=== PATIENT | male | born 1945 | race Caucasian/White ===

== ENCOUNTER → 2017-11-02 08:30 | Outpatient (CLI) | payer MEDICARE, BC, SELFPAY | PROVIDERS: PCP Family Medicine; Visit Provider Urology | DX: C61 Malignant neoplasm of prostate (principal) | CPT/HCPCS: 96402; 99213; J9217 ==

== ENCOUNTER 2017-11-23 08:07 | Outpatient (CLI) | payer MEDICARE, BC, SELFPAY ==
[2017-11-23 09:26] LABS: ALT 21 U/L (12-78); AST 13 U/L (15-37); Albumin 3.5 g/dL (3.4-5.0); Alkaline Phosphatase 75 U/L (46-116); Anion Gap 7.3 mmol/L (3-11); BUN 14 mg/dL (7-18); Bilirubin, Total 0.5 mg/dL (0.2-1.0); CO2 29.7 mmol/L (21.0-32.0); CREATININE 0.81 mg/dL (0.70-1.30); Calcium 9.1 mg/dL (8.5-10.1); Chloride 107 mmol/L (98-107); Cholesterol 140 mg/dL (50-200); Glucose 102 mg/dL (70-100); HDL Cholesterol 44 mg/dL (40-60); LDL CHOLESTEROL 79 mg/dL (<100); Sodium 144 mmol/L (136-145); Total Protein 6.5 g/dL (6.4-8.2); Triglyceride 131 mg/dL (30-150)
[2017-11-24 10:47] LABS: PSA, Diagnostic <0.1 ng/ml (0-6.5)
== END 2017-11-23 08:27 ==
PROVIDERS: PCP Family Medicine; Referring Provider Family Medicine; Visit Provider Urology
DX: E55.9 Vitamin D deficiency, unspecified (principal); E78.2 Mixed hyperlipidemia; R53.83 Other fatigue; R73.9 Hyperglycemia, unspecified; Z85.46 Personal history of malignant neoplasm of prostate; C61 Malignant neoplasm of prostate
CPT/HCPCS: 80053; 80061; 83721; 84153

== ENCOUNTER → 2018-09-14 09:02 | Outpatient (BNVA) | payer MEDICARE, BC, SELFPAY | PROVIDERS: PCP Family Medicine; Visit Provider Urology | DX: R69 Illness, unspecified (principal) ==

== ENCOUNTER 2018-09-14 09:37 | Outpatient (CLI) | payer MEDICARE, BC, SELFPAY ==
[2018-09-15 08:57] LABS: PSA, Diagnostic <0.1 ng/ml (0-6.5)
== END 2018-09-14 09:57 ==
PROVIDERS: PCP Family Medicine; Visit Provider Urology
DX: C61 Malignant neoplasm of prostate (principal)
CPT/HCPCS: 36415; 96402; 99211; J9217; 84153

== ENCOUNTER → 2019-09-19 09:41 | Outpatient (BNVA) | payer MEDICARE, BC, SELFPAY | PROVIDERS: PCP Family Medicine; Referring Provider Family Medicine; Visit Provider Nurse Practitioner Gerontology | DX: C61 Malignant neoplasm of prostate (principal); Z90.79 Acquired absence of other genital organ(s) | CPT/HCPCS: 96402; 99213; J9217 ==

== ENCOUNTER 2019-09-19 10:24 | Outpatient (CLI) | payer MEDICARE, BC, SELFPAY ==
[2019-09-20 08:43] LABS: PSA, Diagnostic <0.1 ng/mL (0.0-6.5)
== END 2019-09-19 10:44 ==
PROVIDERS: PCP Family Medicine; Visit Provider Nurse Practitioner Gerontology
DX: C61 Malignant neoplasm of prostate (principal)
CPT/HCPCS: 84153

== ENCOUNTER 2019-11-06 23:32 | Emergency (ER) | payer MEDICARE, BC, SELFPAY ==
--- NOTE | 2019-11-06 23:30 | DI.CT_ITS ---
EXAM: CT ABDOMEN PELVIS W CLINICAL HISTORY: upper abdominal pain TECHNIQUE: Imaging Protocol: Axial computed tomography images with coronal and sagittal reformatted images were created and reviewed CONTRAST MATERIAL: Intravenous: Omnipaque 350 Contrast volume:100 mL Oral: No COMPARISON: No exams were available for comparison FINDINGS: ABDOMEN: Lung Bases: Bibasilar atelectasis. Liver: Normal density. No measurable mass. Portal, Superior Mesenteric, and Splenic Veins: Unremarkable. Gallbladder and Biliary Tract: Cholelithiasis. No biliary ductal dilatation. Pancreas: Normal density, no abnormal calcifications or inflammatory process. Spleen: Normal. Adrenals: No masses seen. Kidneys: Normal size, contour and axis. No radiodense stones or obstructive uropathy. Simple left garrett al cyst. Abdominal Aorta: Abdominal portion non-dilated. Mild atherosclerosis. Bowel: No obstruction or bowel wall thickening. Appendix is unremarkable. Colonic diverticulosis. No evidence of acute diverticulitis. Small hiatal hernia. Peritoneal Cavity: No ascites, collection or mesenteric inflammatory response. Lymph Nodes: Within normal limits. Bones: Degenerative changes. Soft Tissues: Small fat containing inguinal hernias. Small fat containing umbilical hernia. PELVIS: Bladder: Not significantly distended. But grossly unremarkable. Reproductive Organs: There appears to be a prior prostatectomy. Lymph Nodes: Within normal limits. Bones: Degenerative changes. IMPRESSION: 1. No acute abdominal or pelvic process. 2. Cholelithiasis without evidence of biliary ductal dilatation. RADIATION DOSE DELIVERED: 876.22mGy.cm Total DLP DATA REPOSITORY: All CT scans at this facility are submitted to the National Radiology Data Registry (NRDR) Dose Index Registry (DIR) with the [employer] ([employer]). RADIATION OPTIMIZATION: All CT scans at this facility use at least one of these dose optimization te chniques: automated exposure control; mA and/or kV adjustment per patient size (includes targeted exa ms where dose is matched to clinical indication); or iterative reconstruction.
[2019-11-06 23:36] VITALS: BP 163/78; PULSE 77; RESP 16; TEMP 36.4; O2SAT 95
--- NOTE | 2019-11-06 23:41 | ED.GENADUL_ITS ---
Discharge Plan Disposition Patient Disposition: HOME Condition: Stable Discharge Details Chief Complaint: Abd Prob Clinical Impression: Abdominal pain, Biliary colic Primary Care Provider: Maico Fonseca ED Provider: Richar Andre Home Meds and New Rx's Prescriptions: Continued multivitamin [Daily-Judie] 1 EACH tablet 1 ea PO DAILY RF: 0 cholecalciferol (vitamin D3) [Vitamin D3] 1,000 UNIT tablet,chewable 1,000 unit PO DAILY RF: 0 pneumoc 13-sav conj-dip cr(PF) [Prevnar 13 (PF)] 0.5 ML syringe 0.5 ml IM ONCE Qty: 1 RF: 0 calcium carbonate 600 MG tablet 600 mg PO DAILY RF: 0 simvastatin 20 MG tablet 20 mg PO DAILY RF: 0 Ubidecarenone [Co Q10] 200 MG capsule 200 mg PO DAILY RF: 0 omega-3 fatty acids-fish oil 1 EACH capsule 1 ea PO TID RF: 0 Lupron Depot (3 month) 22.5 MG syringe kit 22.5 mg IM Q3MO Qty: 1 RF: 0 prednisone 5 mg tablet 5 mg PO DAILY RF: 0 abiraterone [Zytiga] 250 mg Tablet 1,000 mg PO QAM RF: 0 Discharge Instructions Instructions: Biliary Colic (ED) Additional Instructions: you should be contacted with an appointment with general surgery for an appointment if you have severe worsening pain, fevers, persistent vomit or feel more ill return to the emergency department Medical Decision Making 74 yo male with hx of prostate cancer s/p prostatectomy and receives leuprolide injections every 3 months, htn, hld, who comes in with cc of abdominal pain that started after eating tonight after dinner around 5pm. Denies any chest pain/pressure, dyspnea, n/v. States he has hx of galllstones and was worried about this so came here. States no vomit and feels his pain is improving. HE localizes the pain to the umbilicus and ruq without guarding or rebound, states he feels bloated no testicle pain or swelling. Could be indigestion vs gerd, but given history will obtain lab work and ct to evaluate for etiologies such as cholecystitis vs pancreatitis vs sbo. Has no severe pain out of proportion to suggest mesenteric ischemia and pain is reproducible in the mid abdomen without chest pressure or pain so doubt acs at this time and no evidence of dvt and no hypoxia or tachycardia so doubt pe and normal vascular exam so doubt dissection pt states pain resolved. Has no tenderness now. LAbs show elevated ast and alt otherwise unremarkable lab work. CT shows cholelithiasis without evidence of cholecystitis and moderate distention of stomach otherwise unremarkable ct. HAs no velarde's sign. Suspect biliary colic. He is comfortable with d/c and outpatient follow up with general surgery and return precautions this week Differential Diagnosis Differential Diagnosis: sbo, cholecystitis, pancreatitis Imaging Data Radiologic Study: Attestation: I personally reviewed and interpreted this imaging study as follows: Imaging: CT Scan Radiologist's impression: IMPRESSION: 1. No acute findings. 2. Moderate distention of the stomach with no evidence of gastritis. 3. Cholelithiasis without sonographic evidence of cholecystitis or biliary obstruction. 4. Additional findings as described. Lab Data Lab results reviewed: Yes I reviewed the patient's lab results. HPI General Mode of arrival: ambulatory . Date/Time Provider Initiated Documentation: 11/06/19 23:32 . Limitations to Documentation: no limitations . Information obtained by: patient . History of Present Illness 74 year old M presents to the emergency department with the chief complaint of abdominal pain, described as moderate, with intensity rated at 5. Quality is described as aching, and is localized to the abdomen. Patient reports no radiation. No relieving factors improve symptom(s), No exacerbating factors reported . Patient did receive the following treatments prior to arrival, none Related Data Home Medications Medication Instructions Recorded Confirmed cholecalciferol (vitamin D3) 1,000 unit PO DAILY tab.chew 10/28/16 11/06/19 [Vitamin D3] multivitamin [Daily-Judie] 1 ea PO DAILY 10/28/16 11/06/19 pneumoc 13-sav conj-dip cr(PF) 0.5 ml IM ONCE #1 syr 10/28/16 [Prevnar 13 (PF)] Ubidecarenone [Co Q10] 200 mg PO DAILY 10/06/17 11/06/19 calcium carbonate 600 mg PO DAILY 10/06/17 11/06/19 omega-3 fatty acids-fish oil 1 ea PO TID 10/06/17 11/06/19 simvastatin 20 mg PO DAILY tab-cap 10/06/17 11/06/19 Lupron Depot (3 month) 22.5 mg IM Q3MO #1 kit 11/02/17 11/06/19 prednisone 5 mg tablet 5 mg PO DAILY tab 09/14/19 11/06/19 abiraterone [Zytiga] 1,000 mg PO QAM 11/06/19 11/06/19 Previous Rx's Medication Instructions Recorded Lupron Depot (3 month) 22.5 mg IM Q3MO #1 kit 11/02/17 Allergies Allergy/AdvReac Type Severity Reaction Status Date / Time No Known Allergies Allergy Unverified 11/02/17 08:34 General Stated Complaint: Abd Prob LUDWIN: 3 Review of Systems All systems reviewed & are unremarkable except as noted in HPI and below Constitutional Constitutional: Denies chills and Denies fever(s) Cardiovascular Cardiovascular: Denies chest pain and Denies dyspnea Respiratory Respiratory: Denies cough and Denies dyspnea Gastrointestinal Gastrointestinal: Denies nausea and Denies vomiting Musculoskeletal Musculoskeletal: Denies joint swelling PFSH Medical History (Updated 11/07/19 @ 01:06 by Richar Andre MD) Hyperlipidemia Prediabetes Surgical History (Updated 12/23/17 @ 14:37 by Darberry NM) Excision Basal Cell-Nose Extraction of cataract Eyelid Prolapse Prostatectomy (~2008) Family History Mother Diabetes Essential hypertension Neoplasm Colon Renal failure Stroke Father Essential hypertension Myocardial infarction Social History Smoking/Tobacco Use Status: Never Alcohol Intake: current Alcohol Intake frequency: a few times a month Alcohol type: wine Drug use: Never Substance use type: does not use Do you feel safe at home: Yes Do you feel safe in your relationship?: Yes Exam Const General: no acute distress Orientation: alert HENMT Head: normal to inspection Ears: external ears normal General nose exam: external nose normal Mouth: moist mucous membranes Eyes General: appearance normal, both eyes and all related structures Neck Neck: normal visual inspection Resp Effort & Inspection: normal respiratory effort and able to speak in complete sentences Cardio Rate: regular rate GI Palpation: soft and tender Skin General skin exam: no rashes or lesions noted Neuro General: patient alert and patient oriented x3 Extrem General: normal to inspection Psych Mental Status: mental status grossly normal Course Vital Signs Vital signs: Vital Signs Temperature 36.4 C L 11/06/19 23:36 Pulse 77 11/06/19 23:36 Respiratory Rate 16 11/06/19 23:36 Blood Pressure 163/78 H 11/06/19 23:36 Pulse Oximetry 95 11/06/19 23:36 Temperature 36.4 C L 11/06/19 23:36 Temperature Source Skin 11/06/19 23:36 Pulse 77 11/06/19 23:36 Respiratory Rate 16 11/06/19 23:36 Blood Pressure 163/78 H 11/06/19 23:36 Pulse Oximetry 95 11/06/19 23:36 Pain Level 5 11/06/19 23:36
[2019-11-06 23:47] VITALS: BP 152/73
[2019-11-06 23:58] LABS: Abs Immature Grans 0.04 10^3/uL (0.0-0.06); Absolute Basophil Count 0.04 10^3/uL (0.0-0.2); Absolute Eosinophil Count 0.02 10^3/uL (0.0-0.7); Absolute Monocyte Count 0.82 10^3/uL (0.1-0.8); Absolute Neutrophil Count 6.38 10^3/uL (1.2-6.7); Basophils % 0.4; Eosinophils % 0.2; HCT 42.7 % (40.0-50.0); HGB 14.4 g/dL (13.5-17.5); Immature Grans % 0.4; MCH 30.9 pg (27.0-33.0); MCHC 33.7 % (32.0-36.0); MCV 91.6 fL (80-95); MPV 10.4 fL (8.0-11.0); Monocytes % 9.2; Neutrophils % 71.8; Nucleated RBC 0 %; Platelet Count 243 10^3/uL (130-400); RBC 4.66 10^6/uL (4.36-5.78); RDW 12.6 % (11.8-14.1); RDW-SD 42.1 fL
[2019-11-06 23:59] LABS: Bilirubin Negative (Negative); Blood Negative (Negative); Clarity Sl Cloudy (Clear); Glucose Negative (Negative); Ketones Negative (Negative); Leukocyte Esterase Negative (Negative); Nitrite Negative (Negative); Urobilinogen 0.2 EU/dL (Up TO 0.2)
[2019-11-07] MEDS: Omnipaque 350 MG/ML 100 ML BTL IJ (00:12)
[2019-11-07 00:14] LABS: ALT 158 U/L (16-63); AST 208 U/L (15-37); Albumin 3.8 g/dL (3.4-5.0); Alkaline Phosphatase 76 U/L (46-116); Anion Gap 8.1 mmol/L (3-11); BUN 13 mg/dL (7-18); Bilirubin, Direct 0.38 mg/dL (0.00-0.20); Bilirubin, Total 0.8 mg/dL (0.2-1.0); CO2 29.9 mmol/L (21.0-32.0); CREATININE 1.01 mg/dL (0.70-1.30); Calcium 9.1 mg/dL (8.5-10.1); Chloride 105 mmol/L (98-107); Glucose 149 mg/dL (74-106); Lipase 83 U/L (73-393); Potassium 3.7 mmol/L (3.5-5.1); Sodium 143 mmol/L (136-145); Total Protein 7.2 g/dL (6.4-8.2)
[2019-11-07] MEDS: Normal Saline - Diluent 50 ML VIAL IV (00:14)
[2019-11-07] MEDS: Normal Saline Flush 10 ML SYR IVP (00:15)
[2019-11-07] MEDS: Normal Saline 1,000 ML 1000 ML IV (00:16)
[2019-11-07 00:19] LABS: INR 0.9 (0.9-1.1); PTT Activated 19.8 sec (21.0-31.4); Prothrombin Time 9.5 sec (9.3-11.0)
--- NOTE | 2019-11-07 00:25 | DI.VRAD_ITS ---
Addendum created by Nohelia Rowland MD on 11/07/2019 12:25:13 AM EDT: IMPRESSION: 1. No acute findings. 2. Moderate distention of the stomach with no evidence of gastritis. 3. Cholelithiasis without CT evidence of cholecystitis or biliary obstruction. 4. Additional findings as described. Initial report created on 11/07/2019 12:24:53 AM EDT: PROCEDURE INFORMATION: Exam: CT Abdomen And Pelvis With Contrast Exam date and time: 11/06/2019 00:04 Age: 74 years old Clinical indication: Localized; Prior surgery; Surgery date: 6+ months; Surgery type: HX of prostate CA, prostate removed in 2008; Patient HX: Upper abdominal pain after eating TECHNIQUE: Imaging protocol: Computed tomography of the abdomen and pelvis with intravenous contrast. Radiation optimization: All CT scans at this facility use at least one of these dose optimization techniques: automated exposure control; mA and/or kV adjustment per patient size (includes targeted exams where dose is matched to clinical indication); or iterative reconstruction. Contrast material: OMNIPAQUE 350; Contrast volume: 100 ml; Contrast route: INTRAVENOUS (IV); COMPARISON: No relevant prior studies available. FINDINGS: Liver: Mild periportal edema in the liver. No convincing biliary dilation. Gallbladder and bile ducts: Cholelithiasis. The common bile duct is grossly normal in caliber on CT. Pancreas: No ductal dilation. No masses. Spleen: No splenomegaly or focal lesions. Adrenals: No mass. Kidneys and ureters: Benign-appearing left renal cyst. No renal masses or hydronephrosis bilaterally. Stomach and bowel: Moderate distention of the stomach with no evidence of gastritis. Colonic diverticulosis without diverticulitis. No focal pathology in the small bowel. Appendix: No evidence of appendicitis. Intraperitoneal space: No free air. No significant fluid collection. Vasculature: No abdominal aortic aneurysm. Lymph nodes: No significantly enlarged lymph nodes. Bladder: Unremarkable as visualized. Reproductive: Prostatectomy. Bones/joints: Degenerative changes in the spine. No acute fracture or subluxation. Degenerative changes in the spine. Soft tissues: Tiny fat-containing umbilical hernia. Small fat-containing right inguinal hernia. Small fat-containing left inguinal hernia. IMPRESSION: 1. No acute findings. 2. Moderate distention of the stomach with no evidence of gastritis. 3. Cholelithiasis without sonographic evidence of cholecystitis or biliary obstruction. 4. Additional findings as described. Dictated and Authenticated by: Nohelia Rowland MD. Ordering:MARY Mcqueen MD
--- NOTE | 2019-11-07 00:52 | NUR.NOTE ---
Nursing Note: referal to general surgery sent 11/07/19
[2019-11-07 01:16] VITALS: BP 126/69; PULSE 61; RESP 16; O2SAT 97
== END 2019-11-07 01:25 | disposition home or self-care (01) ==
PROVIDERS: Emergency Provider Emergency Medicine; PCP Family Medicine
DX: K80.70 Calculus of gallbladder and bile duct without cholecystitis without obstruction (principal); R10.11 Right upper quadrant pain; K31.89 Other diseases of stomach and duodenum; R74.0 Nonspecific elevation of levels of transaminase and lactic acid dehydrogenase [LDH]; I10 Essential (primary) hypertension
CPT/HCPCS: 36415; 80053; 83690; 96360; 99213; 99285; 74177; 81003; 82248; 85025; 85610; 85730; 99284; J3490

== ENCOUNTER → 2019-11-07 12:51 | Outpatient (BNVA) | payer MEDICARE, BC, SELFPAY | PROVIDERS: PCP Family Medicine; Referring Provider Family Medicine; Visit Provider Surgery | DX: K80.50 Calculus of bile duct without cholangitis or cholecystitis without obstruction (principal); R10.11 Right upper quadrant pain | CPT/HCPCS: 99203; 99213 ==

== ENCOUNTER → 2020-10-25 09:03 | Outpatient (BNVA) | payer MEDICARE, BC, SELFPAY | PROVIDERS: PCP Family Medicine; Referring Provider Family Medicine; Visit Provider Nurse Practitioner Gerontology | DX: C61 Malignant neoplasm of prostate (principal); Z90.79 Acquired absence of other genital organ(s) | CPT/HCPCS: 96402; J9217 ==

== ENCOUNTER 2020-11-06 03:24 | Outpatient (CLI) | payer MEDICARE, BC, SELFPAY ==
[2020-11-06 23:01] LABS: PSA, Diagnostic <0.1 ng/mL (0.0-6.5)
== END 2020-11-06 03:25 | disposition home or self-care (01) ==
LOC: LBO 03:24
PROVIDERS: PCP Family Medicine; Visit Provider Urology
DX: C61 Malignant neoplasm of prostate (principal)
CPT/HCPCS: 36415; 84153

== ENCOUNTER → 2021-09-02 15:34 | Outpatient (BNVA) | payer MEDICARE, BC, SELFPAY | PROVIDERS: PCP Family Medicine; Referring Provider Family Medicine; Visit Provider Nurse Practitioner Gerontology | DX: C61 Malignant neoplasm of prostate (principal) | CPT/HCPCS: 81003; 96402; J9217 ==

== ENCOUNTER 2021-11-07 04:52 | Outpatient (CLI) | payer MEDICARE, BC, SELFPAY ==
[2021-11-07 13:08] LABS: Abs Immature Grans 0.03 10^3/uL (0.0-0.06); Absolute Basophil Count 0.08 10^3/uL (0.0-0.2); Absolute Eosinophil Count 0.16 10^3/uL (0.0-0.7); Absolute Lymphocyte Count 1.55 10^3/uL (1.2-3.4); Absolute Monocyte Count 0.82 10^3/uL (0.1-0.8); Absolute Neutrophil Count 6.64 10^3/uL (1.2-6.7); Basophils % 0.9; Eosinophils % 1.7; HCT 41.9 % (40.0-50.0); HGB 14.3 g/dL (13.5-17.5); Immature Grans % 0.3; Lymphocytes % 16.7; MCH 31.2 pg (27.0-33.0); MCHC 34.1 % (32.0-36.0); MCV 92 fL (80-95); MPV 10.4 fL (8.0-11.0); Monocytes % 8.8; Neutrophils % 71.6; Platelet Count 226 10^3/uL (130-400); RBC 4.58 10^6/uL (4.36-5.78); RDW 12.8 % (11.8-14.1); RDW-SD 42.5 fL; WBC 9.28 10^3/uL (4.4-10.8)
[2021-11-07 14:43] LABS: TSH (W/Ref FT4) 2.43 uIU/mL (0.36-3.74); Vitamin B12 455 pg/mL (193-986)
== END 2021-11-07 04:53 | disposition home or self-care (01) ==
LOC: LBO 04:52
PROVIDERS: PCP Family Medicine; Visit Provider Family Medicine
DX: R53.83 Other fatigue (principal); Z79.899 Other long term (current) drug therapy
CPT/HCPCS: 36415; 82607; 84443; 85025

== ENCOUNTER 2021-12-02 02:43 | Outpatient (CLI) | payer MEDICARE, BC, SELFPAY ==
[2021-12-03 16:44] LABS: PSA, Ultrasensitive 0.03 ng/mL (<= 6.5)
[2021-12-07 10:04] LABS: Testosterone, Total <7.0 ng/dL (240-950)
== END 2021-12-02 02:44 | disposition home or self-care (01) ==
LOC: LBO 02:44
PROVIDERS: PCP Family Medicine; Visit Provider Nurse Practitioner Gerontology
DX: C61 Malignant neoplasm of prostate (principal)
CPT/HCPCS: 36415; 84153; 84403

== ENCOUNTER → 2021-12-09 15:02 | Outpatient (BNVA) | payer MEDICARE, BC, SELFPAY | PROVIDERS: PCP Family Medicine; Referring Provider Family Medicine; Visit Provider Nurse Practitioner Gerontology | DX: C61 Malignant neoplasm of prostate (principal) | CPT/HCPCS: 96402; J9217 ==

== ENCOUNTER 2022-09-10 02:39 | Outpatient (CLI) | payer MEDICARE, BC, SELFPAY ==
[2022-09-13 15:08] LABS: PSA, Ultrasensitive 0.23 ng/mL (<= 6.5)
[2022-09-15 23:24] LABS: Testosterone, Total <7.0 ng/dL (240-950)
== END 2022-09-10 02:40 | disposition home or self-care (01) ==
LOC: LBO 02:39
PROVIDERS: Nurse Practitioner Gerontology; PCP Family Medicine; Visit Provider Urology
DX: C61 Malignant neoplasm of prostate (principal)
CPT/HCPCS: 36415; 84153; 84403

== ENCOUNTER → 2022-09-16 08:01 | Outpatient (BNVA) | payer MEDICARE, BC, SELFPAY | PROVIDERS: PCP Family Medicine; Referring Provider Family Medicine; Visit Provider Nurse Practitioner Gerontology | DX: C61 Malignant neoplasm of prostate (principal) | CPT/HCPCS: 96402; J9217 ==

== ENCOUNTER → 2022-10-23 10:58 | Outpatient (BNVA) | payer MEDICARE, BC, SELFPAY | PROVIDERS: PCP Family Medicine; Referring Provider Family Medicine | DX: M65.311 Trigger thumb, right thumb (principal); M65.352 Trigger finger, left little finger | CPT/HCPCS: 99213 ==

== ENCOUNTER → 2023-10-16 11:20 | Outpatient (BNVA) | payer MEDICARE, BC, SELFPAY | PROVIDERS: PCP Family Medicine; Referring Provider Family Medicine; Visit Provider Urology | DX: C61 Malignant neoplasm of prostate (principal) | CPT/HCPCS: 96402; J9217 ==

== ENCOUNTER 2023-10-22 14:03 | Outpatient (CLI) | payer MEDICARE, BC, SELFPAY ==
[2023-10-24 10:44] LABS: PSA, Ultrasensitive 0.17 ng/mL (<= 6.5)
[2023-10-27 15:56] LABS: Testosterone, Total <7.0 ng/dL (240-950)
== END 2023-10-22 14:04 | disposition home or self-care (01) ==
LOC: LBO 14:04
PROVIDERS: PCP Family Medicine; Visit Provider Urology
DX: C61 Malignant neoplasm of prostate (principal)
CPT/HCPCS: 36415; 84153; 84403

== ENCOUNTER → 2024-08-15 14:02 | Outpatient (BNVA) | payer MEDICARE, BC, SELFPAY | PROVIDERS: PCP Family Medicine; Referring Provider Family Medicine; Visit Provider Urology | DX: C61 Malignant neoplasm of prostate (principal) | CPT/HCPCS: 96402; 36415; 84153; 84403; J9217 ==

== ENCOUNTER 2024-08-15 15:03 | Outpatient (CLI) | payer MEDICARE, BC, SELFPAY ==
[2024-08-17 21:55] LABS: PSA, Ultrasensitive 0.37 ng/mL (<= 6.5)
[2024-08-20 16:41] LABS: Testosterone, Total <7.0 ng/dL (240-950)
== END 2024-08-15 15:04 | disposition home or self-care (01) ==
LOC: LBO 15:04
PROVIDERS: PCP Family Medicine; Visit Provider Urology
DX: C61 Malignant neoplasm of prostate (principal)
CPT/HCPCS: 36415; 84153; 84403

== ENCOUNTER 2024-11-15 08:20 | Outpatient (CLI) | payer MEDICARE, BC, SELFPAY | END 2024-11-15 08:21 | disposition home or self-care (01) | LOC: LBO 11-16 08:21 | PROVIDERS: PCP Family Medicine; Visit Provider Urology | DX: C61 Malignant neoplasm of prostate (principal) | CPT/HCPCS: 36415; 84153; 84403; 96402; J9217 ==

== ENCOUNTER → 2024-11-15 14:29 | Outpatient (BNVA) | payer MEDICARE, BC, SELFPAY | PROVIDERS: PCP Family Medicine; Referring Provider Family Medicine; Visit Provider Urology | DX: C61 Malignant neoplasm of prostate (principal) | CPT/HCPCS: 96402; J9217 ==